=== PATIENT | male | born 1950 | race Caucasian/White ===

== ENCOUNTER 2022-06-04 12:15 | Inpatient (IN) | payer MEDICARE ==
[2022-06-04 15:02] VITALS: BMI 23.6
[2022-06-04] MEDS ORDERED: HYDROcodone/Acetaminophen 5/325 mg Tablet PO PRN ×2 (16:28)
[2022-06-04] MEDS ORDERED: Acetaminophen 325 MG TAB PO PRN (16:28)
[2022-06-04] MEDS ORDERED: Ondansetron PF 4 MG/2 ML Vial IVP PRN (16:28)
[2022-06-04] MEDS ORDERED: Bisacodyl 5 MG TAB PO PRN (16:28)
[2022-06-05] MEDS ORDERED: Dextrose 5% in Water 1,000 ML IV PRN (07:24)
[2022-06-05] MEDS ORDERED: HumaLOG 300 UNITS/3 ML VIAL SC PRN (07:24)
[2022-06-05] MEDS ORDERED: Dextrose 50% Abboject 50 ML SYRINGE SLOW IVP PRN (07:24)
[2022-06-05] MEDS ORDERED: Morphine 4 MG/ML VIAL SLOW IVP PRN (07:28)
[2022-06-05 08:12] LABS: Anion Gap 11 mmol/L (10-20); BUN (Urea Nitrogen) 16 mg/dL (8.4-25.7); Calc. Creatinine Clearance 92 mL/min (70-130); Calcium 9.1 mg/dL (7.8-10.44); Carbon Dioxide 28 mmol/L (23-31); Chloride 104 mmol/L (98-107); Estimated GFR 96; Glucose 127 mg/dL (80-115); Potassium 4.5 mmol/L (3.5-5.1); Sodium 138 mmol/L (136-145)
[2022-06-05 08:25] LABS: #Basophils 0.1 thou/uL (0.0-0.2); #Eosinphils 0.9 thou/uL (0.0-0.7); #Lymphocytes 1.3 thou/uL (1.20-3.40); #Monocytes 0.4 thou/uL (0.11-0.59); #Neutrophils 3.6 thou/uL (1.40-6.50); %Basophils 0.8 % (0.0-1.0); %Eosinophils 14.8 % (0.0-10.0); %Lymphocytes 20.9 % (21.0-51.0); %Monocytes 6.7 % (0.0-10.0); %Neutrophils 56.8 % (42.0-75.0); Mean Corpuscular Volume 90.6 fl (78.0-98.0); Mean Platelet Volume 7.9 fL (7.4-10.4); Platelet Count 186 10x3/uL (130-400); RBC Distribution Width 12.8 % (11.5-14.5); Red Blood Cell (RBC) Count 4.84 mill/uL (4.70-6.10); White Blood Cell (WBC) Count 6.3 10x3/uL (4.8-10.8)
[2022-06-05 08:49] VITALS: TEMP 98.7
[2022-06-05] MEDS ORDERED: Vancomycin 1 GM in Premix Bag 1 BAG IVPB SCH (09:00)
[2022-06-05] MEDS ORDERED: Enoxaparin Sodium 40 MG/0.4 ML SYRINGE SC SCH (09:00)
[2022-06-05 11:47] VITALS: BP 133/69
[2022-06-05] MEDS ORDERED: metFORMIN 500 MG TAB PO SCH (17:00)
[2022-06-06] MEDS ORDERED: Atorvastatin Calcium 20 MG TAB PO SCH (09:00)
[2022-06-06] MEDS ORDERED: Aspirin 81 mg Enteric Coated Tablet PO SCH (09:00)
== END 2022-06-05 13:18 | disposition home or self-care (01) | DRG 607 ==
LOC: T4-A 14:55
PROVIDERS: ADMIT Internal Medicine; ATTEND Internal Medicine
DX: S90.422A Blister (nonthermal), left great toe, initial encounter (principal); E11.52 Type 2 diabetes mellitus with diabetic peripheral angiopathy with gangrene; L03.115 Cellulitis of right lower limb; M86.8X7 Other osteomyelitis, ankle and foot; E11.69 Type 2 diabetes mellitus with other specified complication; E78.5 Hyperlipidemia, unspecified; L85.9 Epidermal thickening, unspecified; I25.10 Atherosclerotic heart disease of native coronary artery without angina pectoris; M79.81 Nontraumatic hematoma of soft tissue; Z95.5 Presence of coronary angioplasty implant and graft; I25.2 Old myocardial infarction
CPT/HCPCS: 36415; 36416; 80048; 85025; 97139; J3370